=== PATIENT | female | born 1970 | race Caucasian/White ===

== ENCOUNTER 2020-11-28 15:18 | Emergency (ER) | payer SELFPAY ==
[~2020-11-28] VITALS: Ht 160 cm; Wt 61.0 kg
[2020-11-28 15:26] VITALS: BP 146/92
[2020-11-28] MEDS ORDERED: BACITRACIN ZINC OINT UDPKT TOP ONE (16:00)
[2020-11-28] MEDS ORDERED: PREDNISONE 20MG TABLET PO ONE (16:00)
[2020-11-28] MEDS ORDERED: DIPHENHYDRAMINE 25MG CAPSULE PO ONE (16:00)
[2020-11-28] MEDS ORDERED: DIPH25CA83 MT (16:35)
[2020-11-28] MEDS ORDERED: BO1 TP (16:35)
== END 2020-11-28 16:48 | disposition home or self-care (01) ==
LOC: ER 15:18
DX: L30.9 Dermatitis, unspecified (principal); F12.10 Cannabis abuse, uncomplicated; F17.210 Nicotine dependence, cigarettes, uncomplicated; Z98.890 Other specified postprocedural states
CPT/HCPCS: 99282; Q0163; A4315